=== PATIENT | female | born 1945 ===

== ENCOUNTER 2019-05-11 12:49 | Outpatient (AMBR) | payer MEDICARE, SELFPAY ==
--- NOTE | 2019-04-30 14:16 | PTNOTE_ITS ---
PT OP Initial Eval Patient Information Visit Reasons: POST OP RIGHT SHOULDER Medical Diagnosis: Z47.1; Z96.611 Treatment Dx #1: Right Shoulder Mobility Deficits Treatment Dx #2: Right Shoulder Weakness Start of Care: 04/30/19 Date of Onset: 03/22/19 Initial Assessment Subjective Pt is a 73 y/o female s/p right shoulder hemiarthroplasty 03/22/19 secondary to humeral head fracture from a fall. Pt still has pain (8/10) with all activities. Pt has limitation with overhead motions, chores, self care, lifting, cooking, yardwork, and ADLs. Objective Right Shoulder AROM Flexion: 35 deg Abduction: 35 deg ER: unable IR: unable Right Shoulder PROM Flexion: 90 deg Abduction: 90 deg ER: 10 deg IR: 30 deg Right Shoulder MMTs: grossly 2-/5 Right Scapula MMTs: grossly 3/5 [employer] Strength L: 40 lbs R: 9 lbs Assessment Pt demonstrate right shoulder mobility and strength deficits s/p hemiarthroplasty leading to decline function. Pt will benefit from physical therapy to increase strength, mobility, and work on functional tasks. Short Term and Senior Care Goals 1) Increase right shoulder Flexion and Abduction AROM ro 110 deg in 12 wks to be able to perform overhead activities 2) Increase right shoulder MMTs to 3+/5 in 12 wks to be able to perform lifting activities 3) Decrease shoulder pain to 3/10 in 12 wks to be able to perform self care activities 4) Increase scapula MMTs grossly to 3+/5 in 12 wks to be able to perform yardwork 5) Indep with HEP Treatment Plan 1) Manual Therapy 2) Therapeutic Activities 3) Therapeutic Exercises 4) Modalities (ice, heat) Frequency and Duration 2 x wk for 12 wks Certification Dates: 04/30/19 to 07/31/19 Office Procedures PT Procedures PT Date of Service: 04/30/19 OP PT Eval Mod Complex 30 minutes: Yes
--- NOTE | 2019-05-05 16:34 | PT.ODAYNRPT ---
PT Outpatient Daily Note Date of Service: May 05, 2019 OP Daily Note Visit Reasons: POST OP RIGHT SHOULDER Outpatient Physical Therapy Treatment Date: 05/05/19 Subjective: Pt mention that her shoulder still hurts and feels the same. Objective: Please see flow chart for list of ther ex performed Assessment: tolerate exercises with minimal pain Plan: Continue with PT Length of Time (minutes) of Treatment: 30 Minutes Office Procedures PT Procedures PT Date of Service: 04/30/19 OP PT Eval Mod Complex 30 minutes: Yes PT Procedures PT Date of Service: 05/05/19 Therapeutic Exercise 30 minutes: Yes
--- NOTE | 2019-05-07 15:24 | PT.ODAYNRPT ---
PT Outpatient Daily Note Date of Service: May 07, 2019 OP Daily Note Visit Reasons: POST OP RIGHT SHOULDER Outpatient Physical Therapy Treatment Date: 05/07/19 Subjective: pt came in with son and states she is sore from last visit. she continues with pain. Objective: see flow sheet. Assessment: pt tends to take multiple rest breaks in between exercises due to pain. pt compensates a lot with neck and trunk and back extension. cued pt to focus only on shoulder joint motion. needs max cuing to sit back and avoid back extension. she slides down while sitting in chair to compensate for shoulder flexion. educated pt and son about proper posture and compensations. pt has limited mobility of the shoulder due to pain and stiffness. Plan: continue POC per PT. Length of Time (minutes) of Treatment: 30 Minutes Office Procedures PT Procedures PT Date of Service: 04/30/19 OP PT Eval Mod Complex 30 minutes: Yes PT Procedures PT Date of Service: 05/05/19 Therapeutic Exercise 30 minutes: Yes PT Procedures PT Date of Service: 05/07/19 Therapeutic Exercise 30 minutes: Yes
--- NOTE | 2019-05-11 14:40 | PT.ODAYNRPT ---
PT Outpatient Daily Note Date of Service: May 11, 2019 OP Daily Note Visit Reasons: POST OP RIGHT SHOULDER Outpatient Physical Therapy Treatment Date: 05/11/19 Subjective: Pt's shoulder feels the same. Pt notice her movement is better; she is doing her HEP at home per son. Objective: Please see flow chart for list of ther ex performed Assessment: cue to not lean back with wand flexion. Pt's AAROM is improving up to shoulder height with less pain. Tactile cues to correct wand ER. Pt was fatigue at the end of PT session Plan: Continue with PT Length of Time (minutes) of Treatment: 30 Minutes Office Procedures PT Procedures PT Date of Service: 04/30/19 OP PT Eval Mod Complex 30 minutes: Yes PT Procedures PT Date of Service: 05/05/19 Therapeutic Exercise 30 minutes: Yes PT Procedures PT Date of Service: 05/11/19 Therapeutic Exercise 30 minutes: Yes PT Procedures PT Date of Service: 05/07/19 Therapeutic Exercise 30 minutes: Yes
== END 2019-05-11 23:59 | disposition home or self-care (01) ==
PROVIDERS: PCP Family Medicine; Referring Provider Family Medicine; Visit Provider Orthopaedic Surgery
DX: Z47.1 Aftercare following joint replacement surgery (principal); Z96.611 Presence of right artificial shoulder joint; R53.1 Weakness; M25.511 Pain in right shoulder
CPT/HCPCS: 73030; 97110; 97162